=== PATIENT | female | born 1955 | race Caucasian/White ===

== ENCOUNTER 2024-05-03 09:29 | Emergency (ER) | payer MEDICARE, BC ==
[2024-05-03 10:04] LABS: HEMATOCRIT 34.5 % (37.0-47.0); HEMOGLOBIN 10.6 g/dL (12.0-16.0); MEAN CORPUSCULAR HEMOGLOBIN 31.1 pg (27.0-34.0); MEAN CORPUSCULAR HGB CONC 30.7 g/dL (33.0-35.0); MEAN CORPUSCULAR VOLUME 101.2 fL (80-100); PLATELET COUNT,PLT 537 10^3/uL (150-450); RED BLOOD CELL COUNT 3.41 10^6/uL (4.2-5.4); WHITE BLOOD CELL COUNT,WBC 35.5 10^3/uL (5.0-10.0)
[2024-05-03 10:10] LABS: LYMPHOCYTES PERCENT AUTO 2.2 % (20.5-50.1); MONOCYTES PERCENT AUTO 6.9 % (2-8); NEUTROPHILS PERCENT AUTO 90.9 % (42.2-75.2)
[2024-05-03 10:25] LABS: BAND PERCENT MAN 4 %; LYMPHOCYTES PERCENT MAN 1 % (20-50); MONOCYTES PERCENT MAN 4 % (2-8); SEG NEUTROPHILS PERCENT MAN 91 % (42-75)
[2024-05-03 10:28] LABS: ALANINE AMINOTRANSFERASE,ALT 12 U/L (14-59); ALBUMIN 1.3 g/dL (3.4-5.0); ALKALINE PHOSPHATASE 199 U/L (46-116); ANION GAP 8.1 mEq/L (7-13); ASPARTATE AMNIOTRANSFERASE,AST 25 U/L (15-37); BILIRUBIN TOTAL 1.7 mg/dL (0.2-1.0); BLOOD UREA NITROGEN,BUN 26 mg/dL (7-18); BUN/CREATININE RATIO 16.8 (No establ ref range); CALCIUM 8.3 mg/dL (8.5-10.1); CARBON DIOXIDE,CO2 28 mmol/L (21-32); CHLORIDE,CL 103 mmol/L (98-107); CREATININE 1.55 mg/dL (0.55-1.02); GLUCOSE RANDOM 58 mg/dL (70-99); LIPASE 7 U/L (16-77); MAGNESIUM 2.1 mg/dL (1.8-2.4); POTASSIUM,K 5.1 mmol/L (3.5-5.1); PROTEIN TOTAL,TP 5.9 g/dL (6.4-8.2); SODIUM,NA 134 mmol/L (136-145)
[2024-05-03 10:38] LABS: A/G RATIO 0.28; ESTIMATED GFR 36 mL/min (>=60); ETHANOL BLOOD MEDICAL < 3 mg/dL (0); LACTIC ACID 3.3 mmol/L (0.4-2.0)
[2024-05-03] MEDS: Lactated Ringers 1,000 ML IV ONE (10:43)
[2024-05-03] MEDS: Pantoprazole 40 MG Vial IVPUSH ONE (10:43)
[2024-05-03 10:47] LABS: INR 2.8 (0.9-1.2); PROTHROMBIN TIME 26.9 SEC (9.0-12.0)
[2024-05-03] MEDS: Iopamidol 612 MG/ML 100 ML Bottle IVPUSH ONE (12:11)
[2024-05-03] MEDS: Piperacillin/Tazobactam 4.5 GM in Sodium Chloride 0.9% 100 ML IV ONE (12:12)
[2024-05-03] MEDS: Sodium Chloride 0.9% 1,000 ML IV ONE (12:13)
[2024-05-03] MEDS: VANCOmycin 1.25 GM in Sodium Chloride 0.9% 250 ML IV ONE (13:15)
[2024-05-03] MEDS: Lactulose Soln 10 GM/15 ML 30 ML UD Cup PO ONE (13:16)
[2024-05-03 13:27] LABS: APPEARANCE,URINE CLEAR (CLEAR); BILIRUBIN,URINE LARGE (NEGATIVE); COLOR,URINE AMBER (YELLOW); GLUCOSE,URINE NEGATIVE (NEGATIVE); KETONES,URINE TRACE (NEGATIVE); LEUKOCYTE ESTERASE,URINE NEGATIVE (NEGATIVE); NITRITE,URINE NEGATIVE (NEGATIVE); OCCULT BLOOD,URINE NEGATIVE (NEGATIVE); PROTEIN,URINE 100 (NEGATIVE)
[2024-05-03 13:41] LABS: BACTERIA,URINE MODERATE /HPF (0-FEW/HPF); EPITHELIAL CELLS,URINE OCCASIONAL /HPF (NOT SEEN); HYALINE CASTS,URINE FEW; MUCUS,URINE MODERATE /LPF (NOT SEEN); RBC,URINE 0-5 /HPF (0-5); WBC,URINE 0-5 /HPF (0-5/HPF)
== END 2024-05-03 13:25 ==
LOC: DL.ED 09:29
DX: A41.9 Sepsis, unspecified organism (principal); R65.20 Severe sepsis without septic shock; N17.9 Acute kidney failure, unspecified; D73.3 Abscess of spleen; J90 Pleural effusion, not elsewhere classified; D64.9 Anemia, unspecified; E86.0 Dehydration; R79.89 Other specified abnormal findings of blood chemistry; Z88.0 Allergy status to penicillin; Z88.8 Allergy status to other drugs, medicaments and biological substances
CPT/HCPCS: 36415; 70450; 71260; 74177; 80053; 80307; 81001; 82140; 83605; 83690; 83735; 84484; 85025; 85610; 86850; 86900; 86901; 87040; 93005; 96361; 96365; 96375; 99285; A9270; J2470; J2543; J3371; J3490; J7030; J7120; Q9967

== ENCOUNTER 2024-05-27 08:57 | Emergency (ER) | payer MEDICARE, BC ==
[2024-05-27] MEDS: Sodium Chloride 0.9% 1,000 ML IV SCH (08:52)
[2024-05-27 09:04] LABS: BASOPHILS PERCENT AUTO 0.6 % (0.0-1.0); EOSINOPHILS PERCENT AUTO 4.6 % (1.0-3.0); HEMATOCRIT 30.8 % (37.0-47.0); HEMOGLOBIN 9.7 g/dL (12.0-16.0); LYMPHOCYTES PERCENT AUTO 34.2 % (20.5-50.1); MEAN CORPUSCULAR HGB CONC 31.5 g/dL (33.0-35.0); MEAN CORPUSCULAR VOLUME 101.7 fL (80-100); MONOCYTES PERCENT AUTO 10.5 % (2-8); NEUTROPHILS PERCENT AUTO 50.1 % (42.2-75.2); PLATELET COUNT,PLT 585 10^3/uL (150-450); RED BLOOD CELL COUNT 3.03 10^6/uL (4.2-5.4); WHITE BLOOD CELL COUNT,WBC 4.8 10^3/uL (5.0-10.0)
[2024-05-27 09:28] LABS: ALBUMIN 1.6 g/dL (3.4-5.0); ANION GAP 12.6 mEq/L (7-13); BILIRUBIN DIRECT 0.2 mg/dL (0.0-0.2); BILIRUBIN INDIRECT 0.1; BILIRUBIN TOTAL 0.3 mg/dL (0.2-1.0); CALCIUM 8.5 mg/dL (8.5-10.1); CREATININE 0.92 mg/dL (0.55-1.02); EST CRCL DRUG DOSING (CG) 51.24 mL/min; LACTIC ACID 1.6 mmol/L (0.4-2.0); POTASSIUM,K 3.6 mmol/L (3.5-5.1); PROTEIN TOTAL,TP 6.1 g/dL (6.4-8.2)
[2024-05-27 09:29] LABS: A/G RATIO 0.36
[2024-05-27] MEDS: Iopamidol 612 MG/ML 100 ML Bottle IVPUSH ONE (09:36)
[2024-05-27] MEDS: Iopamidol 755 Mg/ML 100 ML Bottle IVPUSH ONE (10:35)
== END 2024-05-27 12:50 ==
LOC: DL.ED 08:57
DX: J90 Pleural effusion, not elsewhere classified (principal); R18.8 Other ascites; I10 Essential (primary) hypertension; Z88.0 Allergy status to penicillin; Z88.1 Allergy status to other antibiotic agents; Z88.8 Allergy status to other drugs, medicaments and biological substances
CPT/HCPCS: 36415; 71045; 71275; 74177; 80048; 80076; 83605; 84484; 85025; 85379; 87040; 96360; 99285; J7030; Q9967

== ENCOUNTER 2024-08-15 15:43 | Emergency (ER) | payer MEDICARE, BC ==
[2024-08-15 16:27] LABS: BASOPHILS PERCENT AUTO 0.4 % (0.0-1.0); EOSINOPHILS PERCENT AUTO 1.8 % (1.0-3.0); HEMATOCRIT 43.5 % (37.0-47.0); HEMOGLOBIN 14.8 g/dL (12.0-16.0); LYMPHOCYTES PERCENT AUTO 28.9 % (20.5-50.1); MEAN CORPUSCULAR HEMOGLOBIN 32.1 pg (27.0-34.0); MEAN CORPUSCULAR VOLUME 94.4 fL (80-100); MONOCYTES PERCENT AUTO 11.5 % (2-8); NEUTROPHILS PERCENT AUTO 57.4 % (42.2-75.2); PLATELET COUNT,PLT 344 10^3/uL (150-450); RED BLOOD CELL COUNT 4.61 10^6/uL (4.2-5.4); WHITE BLOOD CELL COUNT,WBC 5.5 10^3/uL (5.0-10.0)
[2024-08-15 16:48] LABS: ALANINE AMINOTRANSFERASE,ALT 19 U/L (14-59); ALBUMIN 2.9 g/dL (3.4-5.0); ALKALINE PHOSPHATASE 180 U/L (46-116); ANION GAP 8.5 mEq/L (7-13); ASPARTATE AMNIOTRANSFERASE,AST 25 U/L (15-37); BILIRUBIN TOTAL 0.4 mg/dL (0.2-1.0); BLOOD UREA NITROGEN,BUN 11 mg/dL (7-18); BUN/CREATININE RATIO 11.2 (No establ ref range); CARBON DIOXIDE,CO2 31 mmol/L (21-32); CHLORIDE,CL 105 mmol/L (98-107); CREATININE 0.98 mg/dL (0.55-1.02); GLUCOSE RANDOM 91 mg/dL (70-99); POTASSIUM,K 3.5 mmol/L (3.5-5.1); PROTEIN TOTAL,TP 6.6 g/dL (6.4-8.2); SODIUM,NA 141 mmol/L (136-145)
[2024-08-15 16:49] LABS: A/G RATIO 0.78; C-REACTIVE PROTEIN < 0.50 ng/dL (<=0.50); ESTIMATED GFR 63 mL/min (>=60)
[2024-08-15] MEDS ORDERED: cefTRIAXone 2 GM Vial ONE (19:21)
== END 2024-08-15 19:41 | disposition home or self-care (01) ==
LOC: DL.ED 15:43
DX: R07.9 Chest pain, unspecified (principal); I10 Essential (primary) hypertension; Z88.0 Allergy status to penicillin; Z88.8 Allergy status to other drugs, medicaments and biological substances
CPT/HCPCS: 36415; 70450; 71275; 80053; 84484; 85025; 86140; 93005; 93010; 99284; 99285

== ENCOUNTER 2024-12-21 05:17 | Day surgery (SDC) | payer MEDICARE, BC ==
[2024-12-21] MEDS ORDERED: Propofol 200 MG/20 ML SDV IV ONE (05:18)
[2024-12-21] MEDS ORDERED: Lactated Ringers 1,000 ML IV ONE (05:18)
[2024-12-21] MEDS ORDERED: Propofol 200 MG/20 ML SDV ONE ×2 (05:48→08:01)
[2024-12-21] MEDS: Lactated Ringers 1,000 ML IV SCH (05:59)
== END 2024-12-21 08:05 | disposition home or self-care (01) ==
LOC: DL.ENDO 05:17
PROVIDERS: ATTEND Internal Medicine Gastroenterology
DX: Z12.11 Encounter for screening for malignant neoplasm of colon (principal); I10 Essential (primary) hypertension; E66.9 Obesity, unspecified; D50.8 Other iron deficiency anemias; D75.1 Secondary polycythemia; D75.839 Thrombocytosis, unspecified; F41.1 Generalized anxiety disorder; F32.A Depression, unspecified; Z88.8 Allergy status to other drugs, medicaments and biological substances; Z68.26 Body mass index [BMI] 26.0-26.9, adult; Z79.899 Other long term (current) drug therapy
CPT/HCPCS: G0121; J7120

== ENCOUNTER 2025-02-21 03:59 | Emergency (ER) | payer MEDICARE, BC | END 2025-02-21 04:00 | disposition home or self-care (01) | LOC: DL.ED 03:59 | DX: S42.212A Unspecified displaced fracture of surgical neck of left humerus, initial encounter for closed fracture (principal); I10 Essential (primary) hypertension; E66.9 Obesity, unspecified; Z68.28 Body mass index [BMI] 28.0-28.9, adult; Z98.84 Bariatric surgery status; Z90.49 Acquired absence of other specified parts of digestive tract; Z90.710 Acquired absence of both cervix and uterus; Z88.0 Allergy status to penicillin; Z88.8 Allergy status to other drugs, medicaments and biological substances; Z79.82 Long term (current) use of aspirin; Z79.899 Other long term (current) drug therapy; W19.XXXA Unspecified fall, initial encounter | CPT/HCPCS: 72125; 73030-LT; 73080-LT; 99284; A9270-GY ==